=== PATIENT | female | born 2005 | race Hispanic/Latino ===

== ENCOUNTER 2024-11-11 15:08 | Emergency (ER) | payer OTHER ==
[~2024-11-11] VITALS: Ht 160 cm; Wt 78.9 kg
[2024-11-11 15:18] VITALS: RESP 16; TEMP 97.5
[2024-11-11] MEDS ORDERED: IBUPROFEN 600 MG TAB ONE (15:42)
[2024-11-11] MEDS: IBUPROFEN 600 MG TAB PO STA (15:49)
[2024-11-11 15:50] VITALS: PULSE 76; O2SAT 98
[2024-11-11] MEDS: ACETAMINOPHEN 325 MG TAB PO ONE (15:50)
== END 2024-11-11 15:48 | disposition home or self-care (01) ==
LOC: FSED 15:12
DX: S00.83XA Contusion of other part of head, initial encounter (principal); R51.9 Headache, unspecified; W01.0XXA Fall on same level from slipping, tripping and stumbling without subsequent striking against object, initial encounter; Y93.01 Activity, walking, marching and hiking; Y92.89 Other specified places as the place of occurrence of the external cause; F17.210 Nicotine dependence, cigarettes, uncomplicated
CPT/HCPCS: 99283